=== PATIENT | male | born 1960 | race Hispanic/Latino ===

== ENCOUNTER → 2024-06-26 | Outpatient (CLI) | payer OTHER ==
[~2024-06-26] MED LIST: GADOTERATE MEGLUMINE 10 MMOL/20 ML VIAL IV ONE; NIFE-64 PO; OMEP40CA21 PO
--- NOTE | 2024-06-26 10:52 | HMCIMG ---
MRCP([id number])CHOLANGIOPANCREATO HISTORY: Family history of malignant neoplasm of suggestive for patient's COMPARISON: None TECHNIQUE: MRI of the abdomen was performed utilizing multiple pulse sequences in axial, coronal and sagittal planes. Patient was given 18 cc of Clariscan through intravenous route. FINDINGS: No pleural effusion is seen bilaterally. Liver measures 15 cm. Spleen, adrenal glands and pancreas are unremarkable. No definite gallstone is seen in the gallbladder. Common duct is not dilated measuring 3 mm. No MR evidence of common duct stone is seen. No bowel obstruction is seen. There is large left renal cyst measuring 6.5 cm. No hydronephrosis is seen of either kidney. There is right lower pole renal cyst measuring 5.2 cm. There is no evidence of adenopathy or ascites. IMPRESSION: 1. No definite gallstone in the gallbladder. Common duct is not dilated. Bilateral large renal cysts. No ascites.
== END | disposition home or self-care (01) ==
LOC: RAH 08:37
PROVIDERS: ATTEND Internal Medicine Gastroenterology
DX: N28.1 Cyst of kidney, acquired (principal); Z80.0 Family history of malignant neoplasm of digestive organs
CPT/HCPCS: 74183; A9575